=== PATIENT | male | born 1980 | race Caucasian/White ===

== ENCOUNTER 2021-03-14 10:49 | Emergency (ER) | payer OTHER ==
[~2021-03-14] VITALS: Ht 172.7 cm; Wt 81.8 kg
[2021-03-14] MEDS ORDERED: LIDOCAINE 5% TRANSDERMAL PATCH TD ONE (13:00)
[2021-03-14] MEDS ORDERED: CYCLOBENZAPRINE HCL 10 MG TABLET PO ONE (13:00)
[2021-03-14] MEDS ORDERED: KETOROLAC TROMETHAMINE 30 MG/ML VIAL IM ONE (13:00)
[2021-03-14 13:11] VITALS: BP 128/80
== END 2021-03-14 13:50 ==
LOC: EMS 10:57
DX: R45.851 Suicidal ideations (principal); M54.50 Low back pain, unspecified; F14.90 Cocaine use, unspecified, uncomplicated; F17.210 Nicotine dependence, cigarettes, uncomplicated
CPT/HCPCS: 96372; 99284; J1885

== ENCOUNTER 2021-03-15 09:50 | Emergency (ER) | payer OTHER ==
[~2021-03-15] VITALS: Ht 175.3 cm; Wt 190.0 kg
[2021-03-15 11:09] VITALS: BP 140/95
== END 2021-03-15 12:42 | disposition home or self-care (01) ==
LOC: EMS 10:07
DX: Z02.89 Encounter for other administrative examinations (principal); F14.90 Cocaine use, unspecified, uncomplicated; F17.210 Nicotine dependence, cigarettes, uncomplicated
CPT/HCPCS: 99283; Z7502